=== PATIENT | female | born 1990 | race Caucasian/White ===

== ENCOUNTER → 2020-05-26 13:00 | Outpatient (CLI) | payer OTHER, SELFPAY ==
[2020-05-26 09:30] VITALS: BMI 18.8
[2020-05-26 13:53] LABS: Amphetamine Urine VISTA NEGATIVE (<1000 ng/mL); Barbiturate Urine VISTA NEGATIVE (< 200 ng/mL); Benzodiazepine Urine VISTA NEGATIVE (< 200 ng/mL); Cocaine Urine VISTA NEGATIVE (< 300 ng/mL); Ecstacy Urine VISTA NEGATIVE (< 500 ng/mL); Methadone Urine VISTA NEGATIVE (< 300 ng/mL); PCP Urine VISTA NEGATIVE (< 25 ng/mL); THC Urine VISTA NEGATIVE (< 50 ng/mL); Vista UDS pH Range 5
[2020-05-26 15:39] LABS: Chlamydia Trachomatis by PCR Negative (Negative); Neisserai gonorrhoeae by PCR Negative (Negative); Probe Check PASS; Sample Adequacy Control PASS; Specimen Processing Control PASS
[2020-06-02 04:18] LABS: HPV APTIMA, High Risk Negative (Negative)
== END ==
PROVIDERS: Referring Provider Obstetrics & Gynecology; Visit Provider Obstetrics & Gynecology
DX: Z34.90 Encounter for supervision of normal pregnancy, unspecified, unspecified trimester (principal)
CPT/HCPCS: 80307; 87086; 87491; 87591; 87624; 88175; G0145

== ENCOUNTER → 2020-06-01 11:02 | Outpatient (CLI) | payer OTHER, SELFPAY ==
[2020-05-26 09:30] VITALS: BMI 18.8
[2020-06-01 11:29] LABS: Absolute Lymphocyte Count 0.96 X10^3/uL (0.83-4.51); Absolute Neutrophil Count 6.1 X10^3/uL (2.0-7.7); Basophil# 0.04 X10^3/uL; Basophil% 0.5 % (0-1); Eosinophil# 0.05 X10^3/uL; Eosinophils% 0.7 % (0-5); Hematocrit 39.7 % (37-47); Hemoglobin 13.8 g/dL (12.0-15.0); Lymphocyte # 0.96 X10^3/ul (4.0); Lymphocyte % 12.6 % (19-41); Mean Corp Hgb Conc 34.8 g/dL (32-36); Mean Corpuscular Hgb 32.6 pg (27.0-32.0); Mean Corpuscular Volume 93.9 fL (81-99); Mean Platelet Vol. 11.1 fl (6.2-12.0); Monocyte# 0.47 X10^3/uL; Monocyte% 6.2 % (0-10); NRBC Flagged by Analyzer 0 % (0-5); Neutrophil % 79.9 % (47-70); Platelet Count 158 K/mm3 (150-450); RBC Distribution Width CV 11.9 % (11.6-14.6); RBC Distribution Width SD 40.2 fl (35.1-43.9); Red Blood Count 4.23 M/mm3 (4.2-5.4); White Blood Count 7.6 K/mm3 (4.4-11.0)
[2020-06-01 12:16] LABS: NATERA MAILED SPECIMEN
[2020-06-01 12:27] LABS: HIV - WCH Non-Reactive (Nonreactive); Hepatitis B Surface Antigen Non-Reactive (Nonreactive); Hepatitis C Antibody Non-Reactive (Nonreactive); Rubella IgG 7.6 IU/mL
[2020-06-02 03:25] LABS: Rapid Plasmin Reagin (RPR) NONREACTIVE (NONREACTIVE)
== END ==
PROVIDERS: Referring Provider Obstetrics & Gynecology; Visit Provider Obstetrics & Gynecology
DX: Z34.90 Encounter for supervision of normal pregnancy, unspecified, unspecified trimester (principal)
CPT/HCPCS: 36415; 85025; 86592; 86703; 86762; 86803; 86850; 86900; 86901; 87340

== ENCOUNTER → 2020-06-24 16:36 | Outpatient (CLI) | payer OTHER, SELFPAY ==
[2020-06-24 15:42] VITALS: BMI 18.8
== END ==
PROVIDERS: Referring Provider Obstetrics & Gynecology; Visit Provider Obstetrics & Gynecology
DX: Z34.90 Encounter for supervision of normal pregnancy, unspecified, unspecified trimester (principal)
CPT/HCPCS: 87086

== ENCOUNTER → 2020-07-22 16:12 | Outpatient (CLI) | payer OTHER, SELFPAY ==
[2020-07-18 16:05] VITALS: BMI 18.8
[2020-08-02 20:31] LABS: CF, Screen Comment: (.)
== END ==
PROVIDERS: Referring Provider Obstetrics & Gynecology; Visit Provider Obstetrics & Gynecology
DX: Z36.9 Encounter for antenatal screening, unspecified (principal); Z3A.00 Weeks of gestation of pregnancy not specified
CPT/HCPCS: 36415; 81220

== ENCOUNTER → 2020-10-04 15:34 | Outpatient (CLI) | payer OTHER, SELFPAY ==
[2020-09-15 16:04] VITALS: BMI 23.6
[2020-10-04 16:14] LABS: Absolute Lymphocyte Count 1.32 X10^3/uL (0.83-4.51); Absolute Neutrophil Count 7.4 X10^3/uL (2.0-7.7); Basophil# 0.03 X10^3/uL; Basophil% 0.3 % (0-1); Eosinophil# 0.08 X10^3/uL; Eosinophils% 0.8 % (0-5); Hematocrit 38.1 % (37-47); Hemoglobin 13.4 g/dL (12.0-15.0); Lymphocyte # 1.32 X10^3/ul (4.0); Lymphocyte % 13.9 % (19-41); Mean Corp Hgb Conc 35.2 g/dL (32-36); Mean Corpuscular Hgb 33.2 pg (27.0-32.0); Mean Corpuscular Volume 94.3 fL (81-99); Mean Platelet Vol. 10.7 fl (6.2-12.0); Monocyte# 0.59 X10^3/uL; Monocyte% 6.2 % (0-10); NRBC Flagged by Analyzer 0 % (0-5); Platelet Count 219 K/mm3 (150-450); RBC Distribution Width CV 12.7 % (11.6-14.6); RBC Distribution Width SD 43.6 fl (35.1-43.9); Red Blood Count 4.04 M/mm3 (4.2-5.4); White Blood Count 9.5 K/mm3 (4.4-11.0)
[2020-10-04 16:16] LABS: Glucose Challenge Gest 1H 50g 119 mg/dL (70-140)
== END ==
PROVIDERS: Referring Provider Obstetrics & Gynecology; Visit Provider Obstetrics & Gynecology
DX: Z34.90 Encounter for supervision of normal pregnancy, unspecified, unspecified trimester (principal)
CPT/HCPCS: 36415; 82950; 85025; 86850; 86900; 86901

== ENCOUNTER → 2020-11-17 12:14 | Outpatient (CLI) | payer OTHER, SELFPAY ==
[2020-07-18 16:05] VITALS: BMI 18.8
[2020-11-15 16:04] VITALS: BMI 24.7
--- NOTE | 2020-11-17 12:15 | US_ITS ---
STUDY: SECOND AND THIRD TRIMESTER OBSTETRICAL ULTRASOUND - LIMITED REASON FOR EXAM: Female, 30 years old GROWTH LMP: 03/22/2020 PRIOR ULTRASOUND: None. TECHNIQUE: Transabdominal TECHNICAL QUALITY: Adequate. FINDINGS: There is a single intrauterine fetus. The fetus is in a cephalic presentation. There is demonstrated cardiac activity with a heart rate of 137 bpm. There is a normal amniotic fluid volume. The largest amniotic fluid pocket measures 7.1 cm. The amniotic fluid index (DARIUS) is 18.1 cm. The placenta is anterior in location and is not low lying. There are Grade 1 placental changes. The cervix measures 4.4 cm cm in length. BIOMETRY: BPD: 8.6 cm: 34 weeks, 5 days HC: 32.2 cm: 36 weeks, 3 days AC: 31.0 cm: 34 weeks, 6 days FL: 6.5 cm: 33 weeks, 2 days Age by LMP: 34 weeks, 2 days. SIN by LMP: . age by current US: 35 weeks, 5 days. SIN by current US: 12/17/2020. Estimated weight: 2475 grams, +/- 366 grams, 50 percentile. Gender: US/OB Limited With Biometrics IMPRESSION: Living intrauterine of 35 weeks 5 days as described above. Electronically Signed: Michael Michel MD at 17:09 EST Tel , Service support ,
== END ==
PROVIDERS: Referring Provider Obstetrics & Gynecology; Visit Provider Obstetrics & Gynecology
DX: O44.42 Low lying placenta NOS or without hemorrhage, second trimester (principal); Z3A.00 Weeks of gestation of pregnancy not specified
CPT/HCPCS: 76816

== ENCOUNTER → 2020-12-01 16:48 | Outpatient (CLI) | payer OTHER, SELFPAY ==
[2020-12-01 16:11] VITALS: BMI 25.4
== END ==
PROVIDERS: Referring Provider Obstetrics & Gynecology; Visit Provider Obstetrics & Gynecology
DX: Z34.90 Encounter for supervision of normal pregnancy, unspecified, unspecified trimester (principal)
CPT/HCPCS: 87081

== ENCOUNTER 2020-12-29 16:40 | Outpatient (CLI) | payer OTHER, SELFPAY ==
[2020-12-29 16:22] VITALS: BMI 26.4
[2020-12-29 16:54] VITALS: BMI 24.8
[2020-12-29 17:09] VITALS: O2SAT 99
[2020-12-29 17:10] VITALS: BP 132/91; PULSE 75; O2SAT 99
[2020-12-29] MEDS: 0.9% Saline Lock 10 ML Syringe IV (17:30)
[2020-12-29 17:31] VITALS: BP 115/81; PULSE 77
[2020-12-29 17:41] VITALS: BP 126/94; PULSE 86
[2020-12-29 17:55] VITALS: BP 117/88; PULSE 76
[2020-12-29 17:57] LABS: Hematocrit 40.9 % (37-47); Hemoglobin 14.5 g/dL (12.0-15.0); Mean Corp Hgb Conc 35.5 g/dL (32-36); Mean Corpuscular Hgb 32.4 pg (27.0-32.0); Mean Corpuscular Volume 91.5 fL (81-99); Mean Platelet Vol. 11.9 fl (6.2-12.0); Platelet Count 177 K/mm3 (150-450); RBC Distribution Width CV 12.6 % (11.6-14.6); RBC Distribution Width SD 41.6 fl (35.1-43.9); Red Blood Count 4.47 M/mm3 (4.2-5.4); White Blood Count 8.8 K/mm3 (4.4-11.0)
[2020-12-29 18:06] LABS: Protein, Urine (Random) < 6.0 mg/dL (<11.9); Protein:Creat Ratio 207 mg/g CRE (0-200)
[2020-12-29 18:21] LABS: AST(SGOT) 30 U/L (15-37); Alanine Aminotransfer ALT/SGPT 40 U/L (13-56); Creatinine, Serum 0.73 mg/dL (0.55-1.02); EST Glomerular Filtration Rate 100 mL/min (>60); Est Glom Filt Rate - Afr Amer 120 mL/min (>60); Estimated Creatinine Clearance 105.49 ml/min; Uric Acid 5.3 mg/dL (2.6-6.0)
[2020-12-29 18:27] VITALS: BP 118/71; PULSE 74
[2020-12-29 18:39] LABS: ROM Internal Control Test YES-OK TO RESULT pt. (Internal QC); ROM Patient Test Negative (Negative)
--- NOTE | 2020-12-30 20:25 | OB.TRI.PN_ITS ---
Progress Notes Date of Service: 12/29/20 Progress Note: Patient presents for triage evaluation secondary to elevated BPs. 2 mild range pressures, but all other BPs normal. Labs normal aside from P:C of 207. Patient desires expectant management. FHT: Moderate variability reactive no decelerations category I tracing [place]: Irregular Contractions Assessment and plan: Reactive NST, reassuring maternal and status patient discharged to home to follow-up Saturday for IOL for late term. See problem list details for additional plan information. Laboratory Studies: Laboratory Tests 12/29/20 12/29/20 12/29/20 Range/Units 17:54 17:30 17:30 WBC (4.4-11.0) K/mm3 RBC (4.2-5.4) M/mm3 Hgb (12.0-15.0) g/dL Hct (37-47) % MCV (81-99) fL MCH (27.0-32.0) pg MCHC (32-36) g/dL RDW Std Deviation (35.1-43.9) fl RDW Coeff of Bruce (11.6-14.6) % Plt Count (150-450) K/mm3 MPV (6.2-12.0) fl Creatinine (0.55-1.02) mg/dL Estim Creat Clear Calc ml/min Est GFR (MDRD) Af Amer (>60) mL/min Est GFR (MDRD) Non-Af (>60) mL/min Uric Acid (2.6-6.0) mg/dL AST (15-37) U/L ALT (13-56) U/L U Random Total Protein (<11.9) mg/dL Urine Creatinine (NO RANGE EST.) mg/dL Protein/Creatinin Ratio (0-200) mg/g CRE Vag Amniotic Fld Detect Negative (Negative) Blood Type O NEGATIVE Antibody Screen NEGATIVE TNP 12/29/20 12/29/20 12/29/20 Range/Units 17:30 17:30 17:30 WBC 8.8 (4.4-11.0) K/mm3 RBC 4.47 (4.2-5.4) M/mm3 Hgb 14.5 (12.0-15.0) g/dL Hct 40.9 (37-47) % MCV 91.5 (81-99) fL MCH 32.4 H (27.0-32.0) pg MCHC 35.5 (32-36) g/dL RDW Std Deviation 41.6 (35.1-43.9) fl RDW Coeff of Bruce 12.6 (11.6-14.6) % Plt Count 177 (150-450) K/mm3 MPV 11.9 (6.2-12.0) fl Creatinine 0.73 (0.55-1.02) mg/dL Estim Creat Clear Calc 105.49 ml/min Est GFR (MDRD) Af Amer 120 (>60) mL/min Est GFR (MDRD) Non-Af 100 (>60) mL/min Uric Acid 5.3 (2.6-6.0) mg/dL AST 30 (15-37) U/L ALT 40 (13-56) U/L U Random Total Protein < 6.0 (<11.9) mg/dL Urine Creatinine 25.60 (NO RANGE EST.) mg/dL Protein/Creatinin Ratio 207 H (0-200) mg/g CRE Vag Amniotic Fld Detect (Negative) Blood Type Antibody Screen Multi Select Codes - Urinary/Genital Urinary/Genital CPT Codes: 40698-43 non-stress test Interp
== END 2020-12-29 19:05 | disposition home or self-care (01) ==
LOC: WPOUT 16:46 → WP 16:46
PROVIDERS: Referring Provider Obstetrics & Gynecology; Visit Provider Obstetrics & Gynecology
DX: O26.899 Other specified pregnancy related conditions, unspecified trimester (principal); R03.0 Elevated blood-pressure reading, without diagnosis of hypertension; Z3A.00 Weeks of gestation of pregnancy not specified
CPT/HCPCS: 36415; 59025; 59050; 82565; 82570; 84112; 84156; 84450; 84460; 84550; 85027; 86850; 86900; 86901; 99218; A4216; G0378

== ENCOUNTER 2021-01-03 08:30 | Inpatient (IN) | payer OTHER, SELFPAY ==
[2020-12-14 15:59] VITALS: BMI 25.6
--- NOTE | 2021-01-02 20:47 | PCM.HPOB.BLA ---
- Problem List (1) Lab test positive for detection of COVID-19 virus Status: Acute Comment: positive 09/16. 81 mg daily, growth us q 4 weeks. 10/06 US growth nl; NL 11/17 (2) Status: Acute Qualifiers: Comment: NIPT low risk. decline carrier. normal AFP. nl anatomy. (3) Rh negative status during Status: Acute Qualifiers: Comment: Rhogam at 28 weeks and prn (4) Rubella non-immune status, antepartum Status: Acute Comment: equiv. plan avoidance and MMR to be given PP (5) Supervision of normal Status: Acute Qualifiers: Comment: PRR SIN 12/27/20 Boy Dejan Guero (6) Mitral valve prolapse Status: Chronic History and Physical Date of Admission: 01/03/21 Intake Vital Signs 12/29/20 Height 5 ft 4 in 12/29/20 Weight: 154 lb 6 oz 12/29/20 BMI 26.4 12/29/20 BP 148/98 H Intake Visit Reasons: 40 WK OB Special Needs Bus Driver Required: No Is patient in pain?: No Allergies Sulfa (Sulfonamide Antibiotics) Allergy (Mild, Verified 12/29/20 16:22) blisters Medications Vits [Prenatabs FA] 1 tab PO DAILY 12/29/20 [History Confirmed 12/29/20] Last Menstral Period: 03/22/20 Zika: Zika virus screening: Negative : No PFSH PFSH Medical History Mitral valve prolapse (Chronic) Abnormal Pap smear of cervix (Acute) Surgical History History of hernia surgery (Acute) History of tonsillectomy (Acute) Status post colposcopy (Acute) Family History Grandfather Heart disease Grandmother Breast cancer Social History (Updated 12/30/20 @ 09:[address] Kailyn Correa MD) Smoking Status: Never smoker alcohol intake: current alcohol intake frequency: a few times a month details: prior to substance use type: does not use caffeine: Yes what type of physical activity do you participate in: walking, additional details: walks dog seatbelt use: always do you feel safe at home: Yes additional social history: - [facility] Patient works at [employer] Pregancy History 1 Elective abortions Hx Para Spontaneous abortions Hx # Term Pregnancies Ectopic pregnancies Hx # Pregnancies Multiple births # of living children HPI 40 WK OB: Details: EMMETT PÉREZ is a 30 year old @ 41 weeks presents for IOL sec postdates. OB Visit SIN Calculator Estimated Delivery Date Method Current WG Current Estimate 12/27/20 LMP (Certain) 40w 3d Expected Delivery Route/Plan Labor Preferences- planning childbirth classes first week in November labor support person: Mode pain management options preferred: [] cut cord/dad catch: [] : [] PP control planned: [] discussed possible routes of delivery and associated risks: [] special requests: [] Specific Issue/Plans flu vaccine: given tdap vaccine: given rhogam: given 28 weeks LARC form signed: declined movement and labor precautions reviewed. Problem list reviewed and updated with the most current plan of care details and appropriate orders placed. Relevant counseling for the gestational age provided. Continue routine care and follow up unless otherwise noted in visit notes/problem list details Initial Weight: 110 lb Date EGA Weight BP Urine Prot Glucose FHR FuHt Pres Dilation Effaced St Visit Note 05/26/20 9w 2d 175 SM- CRL 2.36cm cons with LMP 06/24/20 13w 3d 116 lb 8 oz (+6 lb 8 oz) 106/68 Negative Negative 145 SM- no vb cramping discussed nipt 07/18/20 16w 6d 120 lb (+10 lb) 104/80 150 Sm- no vb lof cramping, ordered phenergan for headaches 08/17/20 21w 1d 126 lb 8 oz (+16 lb 8 oz) 110/72 Negative Negative 145 GP - no cramping, LOF, VB, DFM. Repeat US scheduled for 28 weeks to eval low-lying placenta. 09/15/20 25w 2d 138 lb (+28 lb) 102/60 Negative Negative 140 SM- no vb lof good fm no regular ctx 10/04/20 28w 0d 137 lb (+27 lb) 100/60 140 28 SM- no vb lof good fm nor egular ctx. discussed follow up after covid 19 in , doing well. 12/01/20 30w 0d 140 lb (+30 lb) 108/74 140 30 SM- no vb lof good fm no regular ctx 11/03/20 32w 2d 112/78 Negative Negative 145 32 SM- no vb lof good fm nor egular ctx 11/15/20 34w 0d 144 lb (+34 lb) 110/88 Negative Negative 120 34 GP - no LOF, VB, DFM, regular ctx. Needs repeat growth d/t having COVID - ordered today. CB classes scheduled first week of November. GP - no LOF, VB, DFM, regular ctx. Needs repeat growth d/t having COVID - scheduled for 11/17. CB classes scheduled first week of November. 12/01/20 36w 2d 148 lb (+38 lb) 112/60 Negative Negative 149 36 Cephalic 1 40 -3 MH-No VB, LOF. No reg CTX. Good FM. GBS 12/08/20 37w 2d 149 lb (+39 lb) 120/76 Negative Negative 120 37 1 40 -3 Sm- no vb lof good fm n oregular ctx 12/14/20 38w 1d 149 lb 6 oz (+39 lb 6 oz) 132/84 Negative Negative 136 38 Cephalic 1 70 -2 MH-No reg CTX. Good Fm. No VB. LOF 12/23/20 39w 3d 152 lb (+42 lb) 120/72 Negative Negative 130 38 1 70 -2 SM- no vb lof good fm no regular ctx 12/29/20 40w 2d 154 lb 6 oz (+44 lb 6 oz) 148/98 Negative Negative SM- no vb lof good fm no regular ctx elevated bp to l and d for evaluation ACOG First Trimester First Trimester: Desire for , Alcohol, Tobacco Cessation, Illicit/Recreational Drug/Substance Use, Intimate Partner Violence, Barriers to care, Unstable Housing, Communication Barriers, Environmental/Work Hazards, Anticipated Course of Care, Toxoplasmosis Precations, Use of Any medications, Sexual activity, Exercise, Dental Care, Sauna/Hot tub use, Seat Belt use, Childbirth classes/Hospital facilities, , Travel, Indications for US and Screening for Aneuploidy Diagnostics Diagnostics Diagnostics Blood Type O NEGATIVE 12/29/20 Antibody Screen NEGATIVE 12/29/20 Glucose 1 Hr 50 gm 119 mg/dL (70-140) 10/04/20 Hgb 14.5 g/dL (12.0-15.0) 12/29/20 Hct 40.9 % (37-47) 12/29/20 Details: HIV: Urine Culture: Sequential Screen: NIPT Screen: ROS Const Reports system reviewed and no additional complaints, except as docu Card Reports system reviewed and no additional complaints, except as docu Resp Reports system reviewed and no additional complaints, except as docu GI Reports system reviewed and no additional complaints, except as docu, Reports nausea Reports system reviewed and no additional complaints, except as docu Musc Reports system reviewed and no additional complaints, except as docu Exam Const General: cooperative, healthy appearing, comfortable, anxious HENMT Head: normal to inspection Nose: external nose normal Face and sinus: normal facial exam Neck Neck: normal visual inspection, full ROM, no lymphadenopathy Thyroid: thyroid normal Chest Chest palpation & inspection: normal inspection of the chest Resp Effort & Inspection: normal respiratory effort GI Inspection: normal to inspection Palpation: soft, other (gravid uterus) Other: infant vertex and appropriate size for gestational age Other: Cervical Exam: Extrem General: pedal edema Results POC Urinalysis 2 Dip (Clinic) Office Urine Glucose Negative Last Edit by Kari Davis on 12/29/20 16:44 Office Urine Protein Negative Last Edit by Kari Davis on 12/29/20 16:44 Assessment & Plan Problems 1. Lab test positive for detection of COVID-19 virus U07.1 positive 09/16. 81 mg daily, growth us q 4 weeks. 10/06 US growth nl; NL 11/17 2. Rubella non-immune status, antepartum O99.89; Z28.3 equiv. plan avoidance and MMR to be given PP 3. Rh negative status during O26.899; Z67.91 Rhogam at 28 weeks and prn 4. 40 weeks gestation of Z3A.40 NIPT low risk. decline carrier. normal AFP. nl anatomy. 5. Supervision of normal Z34.90 PRR SIN 12/27/20 Boy Dejan Guero 6. Mitral valve prolapse I34.1 Patient presents IOL, plan management for with cytotec and pitocin Pain management: [plans epidural]. GBS [negative]. Management of any complications: [none] I have reviewed the PFSH and made any clinically relevant updates. Orders Orders: POC Urinalysis 2 Dip (Clinic) 12/29/20 Coding Level of Care Code OB Routine Diagnoses Lab test positive for detection of COVID-19 virus U07.1 Rubella non-immune status, antepartum O99.89; Z28.3 Rh negative status during O26.899; Z67.91 40 weeks gestation of Z3A.40 ??Weeks of gestation: 40 weeks Supervision of normal Z34.90 Mitral valve prolapse I34.1 UPDATE- I have seen the patient and performed any clinically relevant updates to the history and physical exam. Kailyn Correa MD
[2021-01-03] VITALS (47 sets, daily range): BP systolic 111–139; BP diastolic 67–94; PULSE 66–104; RESP 18; TEMP 36.5–36.8; O2SAT 94–100; BMI 25.2
[2021-01-03 09:18] LABS: Absolute Lymphocyte Count 1.12 X10^3/uL (0.83-4.51); Absolute Neutrophil Count 6.5 X10^3/uL (2.0-7.7); Basophil# 0.05 X10^3/uL; Basophil% 0.6 % (0-1); Eosinophil# 0.07 X10^3/uL; Eosinophils% 0.8 % (0-5); Hematocrit 40.8 % (37-47); Lymphocyte # 1.12 X10^3/ul (4.0); Lymphocyte % 13.4 % (19-41); Mean Corp Hgb Conc 34.3 g/dL (32-36); Mean Corpuscular Hgb 32.3 pg (27.0-32.0); Monocyte# 0.53 X10^3/uL; Monocyte% 6.4 % (0-10); NRBC Flagged by Analyzer 0 % (0-5); Neutrophil # 6.48 X10^3/uL (2.7-7.7); Neutrophil % 77.7 % (47-70); Platelet Count 159 K/mm3 (150-450); RBC Distribution Width CV 12.7 % (11.6-14.6); RBC Distribution Width SD 43.9 fl (35.1-43.9); Red Blood Count 4.34 M/mm3 (4.2-5.4); White Blood Count 8.3 K/mm3 (4.4-11.0)
[2021-01-03] MEDS: miSOPROStol 25 MCG TABLET VAGINAL (09:22)
[2021-01-03] MEDS: 0.9% Normal Saline Single 100 ML IV.SOLN. INTRA-UTER (10:38)
[2021-01-03] MEDS: Lactated Ringers 1,000 ML 200 ML IV (12:25)
[2021-01-03] MEDS: Oxytocin 30 units/NS 500 ml 30 UNITS/500 ML IV.SOLN IV (13:09)
[2021-01-03] MEDS: Lactated Ringers 500 ML 999 ML IV (13:51)
[2021-01-03] MEDS: fentaNYL-bupivacaine (epidural) 100 ML BAG EPIDURAL ×2 (14:33→16:50)
--- NOTE | 2021-01-03 16:54 | OP.PCM_ITS ---
Problem List (1) Lab test positive for detection of COVID-19 virus Status: Acute Comment: positive 09/16. 81 mg daily, growth us q 4 weeks. 10/06 US growth nl; NL 11/17 (2) Status: Acute Qualifiers: Comment: NIPT low risk. decline carrier. normal AFP. nl anatomy. (3) Rh negative status during Status: Acute Qualifiers: Comment: Rhogam at 28 weeks and prn (4) Rubella non-immune status, antepartum Status: Acute Comment: equiv. plan avoidance and MMR to be given PP (5) Supervision of normal Status: Acute Qualifiers: Comment: PRR SIN 12/27/20 Boy Dejan Guero (6) Mitral valve prolapse Status: Chronic Vaginal Delivery Maternal Presentation: Medically Indicated Induction iol 41 weeks Method of Induction: Pitocin, Cytotec Amniotic Membrane Rupture Type: Artificial Amniotic Fluid Description: Clear Final SIN: 12/27/20 Gestational age: 41 Weeks and 0 Days Date of Procedure: 01/03/21 Pre-Operative Diagnosis: iol postdates Surgery/ Procedure Performed: Spontaneous Vaginal Delivery Type of Anesthesia: Epidural Description of Procedure: Patient began pushing and delivered the head in the [SYMONE] presentation. The head was delivered atraumatically [and a loose nuchal cord ?1 was identified and easily reduced over the infant's head]. The anterior and posterior shoulders delivered without complication followed by the rest of the infant and the was placed on the maternal abdomen. Delayed cord clamping was employed for approximately 60 seconds. Cord was clamped and cut and gentle traction was applied to the cord and the placenta delivered spontaneously immediately following it was noted to be intact with three-vessel cord. The perineum and vagina were inspected and [noted to have no laceration]. EBL was [100 cc]. Patient and tolerated delivery well. Presentation: SYMONE Placental Delivery Description: Spontaneous Placenta Disposition: [facility] Cord Vessel Description: 3 Vessels Infant A gender: Female Multi Select Codes - Urinary/Genital Urinary/Genital CPT Codes: 25183 Vaginal Delivery [facility]
[2021-01-03] MEDS: Oxytocin 30 units/NS 500 ml 30 UNITS/500 ML IV.SOLN 334 UNITS IV (17:55)
[2021-01-03] MEDS: Naproxen 250 MG Tablet 500 MG PO (19:19)
[2021-01-04] VITALS (7 sets, daily range): BP systolic 112–136; BP diastolic 64–88; PULSE 78–98; RESP 15–18; TEMP 36.6–37.2
[2021-01-04] MEDS: Acetaminophen 500 MG Tablet 1000 MG PO ×3 (02:24→18:47)
[2021-01-04] MEDS: Naproxen 250 MG Tablet 500 MG PO ×3 (04:58→21:15)
--- NOTE | 2021-01-04 08:01 | PCM.PN.OB ---
Patient Problems: Active and Suspected Problems (Last Reviewed 12/29/20 @ 16:22 by Kari Davis) Lab test positive for detection of COVID-19 virus (Acute) positive 09/16. 81 mg daily, growth us q 4 weeks. 10/06 US growth nl; NL 11/17 Rubella non-immune status, antepartum (Acute) equiv. plan avoidance and MMR to be given PP Rh negative status during (Acute) Rhogam at 28 weeks and prn (Acute) NIPT low risk. decline carrier. normal AFP. nl anatomy. Supervision of normal (Acute) PRR SIN 12/27/20 Boy Dejan Guero Subjective: Patient doing well without complaints. Tolerating PO. Ambulating and voiding without difficulty. Breast feeding well. Denies chest pain, shortness of breath, calf pain/swelling, fevers, chills, lightheadedness. - Physical Exam Vitals/I&O's: Vital Signs Temp Pulse Resp BP Pulse Ox 98.1 F 78 18 112/68 100 01/04/21 07:54 01/04/21 07:54 01/04/21 04:44 01/04/21 07:54 01/03/21 17:17 Oxygen Delivery Method Room Air Weight: 156 lb 6 oz Body Mass Index (BMI) 25.2 Intake and Output for Last 24 Hours 01/02/21 01/03/21 01/04/21 23:59 23:59 23:59 Intake Total 1923.16 / 1923.16 Output Total 100 / 100 900 / 900 Balance 1823.16 / 1823.16 -900 / -900 General: Alert, Oriented x3, Cooperative Abdomen: Soft, Non Tender, Non-Distended, - - FF below U Microbiology Past 72 Hours 01/03/21 09:40 Mucosa - Nose SARS-CoV-2 Antigen (Rapid) - Final Laboratory Results 01/03/21 08:50: WBC 8.3, RBC 4.34, Hgb 14.0, Hct 40.8, MCV 94.0, MCH 32.3 H, MCHC 34.3, RDW Std Deviation 43.9, RDW Coeff of Bruce 12.7, Plt Count 159, MPV 12.0, Immature Gran % (Auto) 1.100 H, Neut % (Auto) 77.7 H, Lymph % (Auto) 13.4 L, Haakon % (Auto) 6.4, Eos % (Auto) 0.8, Baso % (Auto) 0.6, Absolute Neuts (auto) 6.5, Absolute Lymphs (auto) 1.12, Nucleated RBC % 0 01/03/21 08:50: Blood Type O NEGATIVE, Antibody Screen NEGATIVE Current Medications Acetaminophen (Acetaminophen 500 Mg Tablet) 1,000 mg PO Q8H PRN PRN PRN Reason: Pain Score 1-3 Last Admin: 01/04/21 02:24 Dose: 1,000 mg Documented by: Bisacodyl (Bisacodyl 10 Mg Suppository) 10 mg RC UD PRN PRN Reason: If no BM Dibucaine (Dibucaine 30 Gm Tube) 1 applic TOPICAL TID PRN PRN; Protocol PRN Reason: Discomfort Hydrocortisone (Hydrocortisone 2.5% Crm) 1 applic TOPICAL TID PRN PRN; Protocol PRN Reason: Discomfort Measles/Mumps/Rubella Vaccine Live (Measles,Mumps&Rubella Vaccine 0.5 Ml Vial) 0.5 ml SC .ONCE ONE Stop: 01/04/21 10:01 Methylergonovine Maleate (Methylergonovine 0.2 Mg/Ml Ampul) 0.2 mg IM X1 PRN PRN Reason: Excess bleeding/uterine atony Naproxen (Naproxen 250 Mg Tablet) 500 mg PO Q8H PRN PRN PRN Reason: Pain Score 1-3 Last Admin: 01/04/21 04:58 Dose: 500 mg Documented by: Ondansetron HCl (Ondansetron 4 Mg/2 Ml Vial) 4 mg IV Q4H PRN PRN PRN Reason: Nausea Oxycodone HCl (Oxycodone 5 Mg Tablet) 5 - 10 mg PO Q4H PRN PRN PRN Reason: Pain Score 4-10 Senna/Docusate Sodium (Senna/Docusate Sodium 1 Tablet) 1 - 2 tablet PO DAILY PRN PRN PRN Reason: Constipation Simethicone (Simethicone 80 Mg Tablet) 80 mg PO PCHS PRN PRN Reason: Indigestion/Stomach pain Sodium Chloride (0.9% Saline Lock 10 Ml Syringe) 5 - 15 ml IV UD PRN PRN Reason: SALINE FLUSH Medical Necessity - Tobacco Use Smoking Status: Never smoker Assessment/Plan All Active Problems (Last Reviewed 12/29/20 @ 16:22 by Kari Davis) Lab test positive for detection of COVID-19 virus (Acute) Rubella non-immune status, antepartum (Acute) Rh negative status during (Acute) (Acute) Supervision of normal (Acute) Low-lying placenta in second trimester (Resolved) Sinusitis (Resolved) s/p PPD # 1 1. routine post delivery care 2. breast feeding- support given 3. rh negative 4. rubella nonimmune
[2021-01-05 02:02] VITALS: BP 102/58; PULSE 77; RESP 16; TEMP 36.5
[2021-01-05] MEDS: Acetaminophen 500 MG Tablet 1000 MG PO (05:00)
--- NOTE | 2021-01-05 07:58 | PCM.PN.OB ---
Patient Problems: Active and Suspected Problems (Last Reviewed 12/29/20 @ 16:22 by Kari Davis) Rubella non-immune status, antepartum (Acute) equiv. plan avoidance and MMR to be given PP Rh negative status during (Acute) Rhogam at 28 weeks and prn Subjective: Patient doing well without complaints. Tolerating PO. Ambulating and voiding without difficulty. well. Denies chest pain, shortness of breath, calf pain/swelling, fevers, chills, lightheadedness. - Physical Exam Vitals/I&O's: Vital Signs Temp Pulse Resp BP Pulse Ox 97.7 F L 77 16 102/58 L 100 01/05/21 02:02 01/05/21 02:02 01/05/21 02:02 01/05/21 02:02 01/03/21 17:17 Oxygen Delivery Method Room Air Weight: 156 lb 6 oz Body Mass Index (BMI) 25.2 Intake and Output for Last 24 Hours 01/03/21 01/04/21 01/05/21 23:59 23:59 23:59 Intake Total 1923.16 / 1923.16 Output Total 100 / 100 900 / 900 Balance 1823.16 / 1823.16 -900 / -900 General: Alert, Oriented x3 Abdomen: Soft, Non Tender, - - FF below U Microbiology Past 72 Hours 01/03/21 09:40 Mucosa - Nose SARS-CoV-2 Antigen (Rapid) - Final Current Medications Acetaminophen (Acetaminophen 500 Mg Tablet) 1,000 mg PO Q8H PRN PRN PRN Reason: Pain Score 1-3 Last Admin: 01/05/21 05:00 Dose: 1,000 mg Documented by: Bisacodyl (Bisacodyl 10 Mg Suppository) 10 mg RC UD PRN PRN Reason: If no BM Dibucaine (Dibucaine 30 Gm Tube) 1 applic TOPICAL TID PRN PRN; Protocol PRN Reason: Discomfort Hydrocortisone (Hydrocortisone 2.5% Crm) 1 applic TOPICAL TID PRN PRN; Protocol PRN Reason: Discomfort Methylergonovine Maleate (Methylergonovine 0.2 Mg/Ml Ampul) 0.2 mg IM X1 PRN PRN Reason: Excess bleeding/uterine atony Naproxen (Naproxen 250 Mg Tablet) 500 mg PO Q8H PRN PRN PRN Reason: Pain Score 1-3 Last Admin: 01/04/21 21:15 Dose: 500 mg Documented by: Ondansetron HCl (Ondansetron 4 Mg/2 Ml Vial) 4 mg IV Q4H PRN PRN PRN Reason: Nausea Oxycodone HCl (Oxycodone 5 Mg Tablet) 5 - 10 mg PO Q4H PRN PRN PRN Reason: Pain Score 4-10 Senna/Docusate Sodium (Senna/Docusate Sodium 1 Tablet) 1 - 2 tablet PO DAILY PRN PRN PRN Reason: Constipation Simethicone (Simethicone 80 Mg Tablet) 80 mg PO PCHS PRN PRN Reason: Indigestion/Stomach pain Sodium Chloride (0.9% Saline Lock 10 Ml Syringe) 5 - 15 ml IV UD PRN PRN Reason: SALINE FLUSH Medical Necessity - Tobacco Use Smoking Status: Never smoker Assessment/Plan All Active Problems (Last Reviewed 12/29/20 @ 16:22 by Kari Davis) Rubella non-immune status, antepartum (Acute) Rh negative status during (Acute) Lab test positive for detection of COVID-19 virus (Resolved) (Resolved) Supervision of normal (Resolved) Low-lying placenta in second trimester (Resolved) Sinusitis (Resolved) s/p PPD # 2 1. routine post delivery care 2. breast feeding- support given 3. rh negative 4. rubella nonimmune 5. home today
--- NOTE | 2021-01-05 07:59 | DCINST_ITS ---
Additional Instructions: If you experience any of the following, contact your healthcare provider. * Bleeding that soaks a pad every hour for 2 hours * Fever 100.4 or higher * Unrelieved incision or abdominal pain * Swelling, redness, discharge or bleeding from your incision or episiotomy site * Your incision begins to separate * Problems urinating (including inability to urinate or burning while urinating). * Visual changes * Severe headache * Flu-like symptoms * Pain or redness in one of both of your breasts * Pain, warmth, tenderness or swelling in your legs, especially the calf area * Frequent nausea and vomiting * Symptoms of depression or anxiety If you experience any of the following, call 911 or go to the nearest Emergency Room. * Chest pain * Problems breathing * Seizure activity * Partial or complete paralysis of a body part, slurred speech, weakness or drooping of the face, or a sudden inability to walk or hold your balance Allergies/Adverse Reactions: Allergies Sulfa (Sulfonamide Antibiotics) Allergy (Mild, Verified 01/03/21 10:22) blisters Medications to take at Discharge Vits [Prenatabs FA] 1 tab PO DAILY 12/29/20 Primary Care Physician: Care Physician,No Primary [Primary Care Provider] - Test Results: Test results from this visit will be discussed in further detail at your follow- up appointment, if applicable.
--- NOTE | 2021-01-05 07:59 | PCM.DCVAG ---
Additional Instructions: If you experience any of the following, contact your healthcare provider. Bleeding that soaks a pad every hour for 2 hours Fever 100.4 or higher Unrelieved incision or abdominal pain Swelling, redness, discharge or bleeding from your incision or episiotomy site Your incision begins to separate Problems urinating (including inability to urinate or burning while urinating). Visual changes Severe headache Flu-like symptoms Pain or redness in one of both of your breasts Pain, warmth, tenderness or swelling in your legs, especially the calf area Frequent nausea and vomiting Symptoms of depression or anxiety If you experience any of the following, call 911 or go to the nearest Emergency Room. Chest pain Problems breathing Seizure activity Partial or complete paralysis of a body part, slurred speech, weakness or drooping of the face, or a sudden inability to walk or hold your balance Allergies/Adverse Reactions: Allergies Sulfa (Sulfonamide Antibiotics) Allergy (Mild, Verified 01/03/21 10:22) blisters Medications to take at Discharge Vits [Prenatabs FA] 1 tab PO DAILY 12/29/20 Primary Care Physician: Care Physician,No Primary [Primary Care Provider] - Test Results: Test results from this visit will be discussed in further detail at your follow-up appointment, if applicable.
[2021-01-05 08:09] VITALS: BP 121/70; PULSE 80; TEMP 36.9
[2021-01-05] MEDS: Naproxen 250 MG Tablet 500 MG PO (08:30)
[2021-01-05 08:51] VITALS: BP 121/70; PULSE 80; RESP 15; TEMP 36.9
== END 2021-01-05 12:15 | disposition home or self-care (01) | DRG 807 ==
PROVIDERS: Admitting Provider Obstetrics & Gynecology; Visit Provider Obstetrics & Gynecology
DX: O48.0 Post-term pregnancy (principal); Z37.0 Single live birth; Z3A.41 41 weeks gestation of pregnancy; O69.81X0 Labor and delivery complicated by cord around neck, without compression, not applicable or unspecified
CPT/HCPCS: 59025; 59050; 85025; 86850; 86900; 86901; 87426; 99218; J7120; G0378

== ENCOUNTER → 2021-01-07 06:55 | Outpatient (CLI) | payer OTHER, SELFPAY ==
[2021-01-03 09:45] VITALS: BMI 25.2
== END ==
PROVIDERS: Referring Provider Obstetrics & Gynecology; Visit Provider Obstetrics & Gynecology
DX: O92.79 Other disorders of lactation (principal)
CPT/HCPCS: 96158

== ENCOUNTER → 2022-09-17 | Outpatient (CLI) | payer OTHER, SELFPAY ==
[2022-09-17 13:41] LABS: hCG Titer Quant., Serum 4638 mIU/mL (1-3)
== END | disposition home or self-care (01) ==
LOC: PAVLAB 12:26
PROVIDERS: Referring Provider Obstetrics & Gynecology; Visit Provider Obstetrics & Gynecology
DX: N91.2 Amenorrhea, unspecified (principal)
CPT/HCPCS: 36415; 84702; 86850; 86900; 86901

== ENCOUNTER → 2022-09-19 | Outpatient (CLI) | payer OTHER, SELFPAY ==
[2022-09-19 16:58] LABS: hCG Titer Quant., Serum 8325 mIU/mL (1-3)
== END | disposition home or self-care (01) ==
LOC: PAVLAB 15:48
PROVIDERS: Referring Provider Obstetrics & Gynecology; Visit Provider Obstetrics & Gynecology
DX: N91.2 Amenorrhea, unspecified (principal)
CPT/HCPCS: 36415; 84702

== ENCOUNTER → 2022-10-03 | Outpatient (CLI) | payer OTHER, SELFPAY ==
[2022-10-03 11:25] LABS: Amphetamine Urine VISTA NEGATIVE (<1000 ng/mL); Barbiturate Urine VISTA NEGATIVE (< 200 ng/mL); Benzodiazepine Urine VISTA NEGATIVE (< 200 ng/mL); Cocaine Urine VISTA NEGATIVE (< 300 ng/mL); Ecstacy Urine VISTA NEGATIVE (< 500 ng/mL); Methadone Urine VISTA NEGATIVE (< 300 ng/mL); PCP Urine VISTA NEGATIVE (< 25 ng/mL); THC Urine VISTA NEGATIVE (< 50 ng/mL); Vista UDS pH Range 6
[2022-10-07 11:07] LABS: Chlamydia By Nucleic Acid AMP Negative (Negative)
[2022-10-07 13:19] LABS: Gonococcus By Nucleic Acid AMP Negative (Negative)
== END | disposition home or self-care (01) ==
PROVIDERS: Visit Provider Obstetrics & Gynecology
DX: O09.90 Supervision of high risk pregnancy, unspecified, unspecified trimester (principal)
CPT/HCPCS: 80307; 87086; 87088; 87491; 87591

== ENCOUNTER → 2022-10-16 | Outpatient (CLI) | payer OTHER, SELFPAY ==
[2022-10-16 16:23] LABS: Absolute Lymphocyte Count 1.31 X10^3/uL (0.83-4.51); Absolute Neutrophil Count 5.3 X10^3/uL (2.0-7.7); Basophil# 0.04 X10^3/uL; Basophil% 0.6 % (0-1); Eosinophil# 0.09 X10^3/uL; Eosinophils% 1.3 % (0-5); Hematocrit 41.8 % (37-47); Hemoglobin 14.2 g/dL (12.0-15.0); Lymphocyte # 1.31 X10^3/ul (0.83-4.51); Lymphocyte % 18.3 % (19-41); Mean Corpuscular Volume 91.3 fL (81-99); Mean Platelet Vol. 11.6 fl (6.2-12.0); Monocyte% 5.6 % (0-10); NRBC Flagged by Analyzer 0 % (0-5); Neutrophil # 5.28 X10^3/uL (2.7-7.7); Neutrophil % 73.8 % (47-70); Platelet Count 181 K/mm3 (150-450); RBC Distribution Width CV 12.4 % (11.6-14.6); RBC Distribution Width SD 41.3 fl (35.1-43.9); Red Blood Count 4.58 M/mm3 (4.2-5.4); White Blood Count 7.2 K/mm3 (4.4-11.0)
[2022-10-16 17:00] LABS: NATERA MAILED SPECIMEN
[2022-10-16 17:27] LABS: HIV - WCH Non-Reactive (Nonreactive); Hepatitis B Surface Antigen Non-Reactive (Nonreactive); Hepatitis C Antibody Non-Reactive (Nonreactive); Rubella IgG Reactive (Nonreactive); Syphilis Antibodies Non-reactive
== END | disposition home or self-care (01) ==
LOC: PAVLAB 15:52
PROVIDERS: Referring Provider Obstetrics & Gynecology; Visit Provider Obstetrics & Gynecology
DX: O09.90 Supervision of high risk pregnancy, unspecified, unspecified trimester (principal)
CPT/HCPCS: 36415; 85025; 86703; 86762; 86780; 86803; 86850; 86900; 86901; 87340

== ENCOUNTER → 2023-02-27 | Outpatient (CLI) | payer OTHER, SELFPAY ==
[2023-02-27 09:55] LABS: Absolute Lymphocyte Count 1.19 X10^3/uL (0.83-4.51); Absolute Neutrophil Count 7.3 X10^3/uL (2.0-7.7); Basophil# 0.06 X10^3/uL; Basophil% 0.6 % (0-1); Eosinophil# 0.07 X10^3/uL; Eosinophils% 0.8 % (0-5); Hematocrit 39.1 % (37-47); Hemoglobin 13.5 g/dL (12.0-15.0); Lymphocyte # 1.19 X10^3/ul (0.83-4.51); Lymphocyte % 12.9 % (19-41); Mean Corp Hgb Conc 34.5 g/dL (32-36); Mean Corpuscular Volume 95.6 fL (81-99); Mean Platelet Vol. 10.7 fl (6.2-12.0); Monocyte# 0.53 X10^3/uL; Monocyte% 5.7 % (0-10); NRBC Flagged by Analyzer 0 % (0-5); Neutrophil # 7.28 X10^3/uL (2.7-7.7); Neutrophil % 78.8 % (47-70); Platelet Count 177 K/mm3 (150-450); RBC Distribution Width CV 12.7 % (11.6-14.6); RBC Distribution Width SD 44.5 fl (35.1-43.9); Red Blood Count 4.09 M/mm3 (4.2-5.4); White Blood Count 9.2 K/mm3 (4.4-11.0)
[2023-02-27 10:43] LABS: Glucose Challenge Gest 1H 50g 114 mg/dL (70-140)
[2023-02-27 11:13] LABS: HIV - WCH Non-Reactive (Nonreactive); Syphilis Antibodies Non-reactive
== END | disposition home or self-care (01) ==
LOC: PAVLAB 09:33
PROVIDERS: Referring Provider Nurse Practitioner Women's Health; Visit Provider Nurse Practitioner Women's Health
DX: O26.899 Other specified pregnancy related conditions, unspecified trimester (principal); Z67.91 Unspecified blood type, Rh negative
CPT/HCPCS: 36415; 82950; 85025; 86703; 86780; 86900; 86901

== ENCOUNTER 2023-04-16 16:50 | Outpatient (CLI) | payer OTHER, SELFPAY ==
[2023-04-16 17:08] VITALS: BP 132/80
[2023-04-16 17:09] VITALS: PULSE 86; O2SAT 97
--- NOTE | 2023-04-16 17:23 | OB.TRI.PN_ITS ---
Progress Notes Date of Service: 04/16/23 Progress Note: Patient presents for triage evaluation secondary to low baseline in office FHT: 125 Moderate variability reactive no decelerations category I tracing [place]: no Contractions Assessment and plan: Reactive NST, reassuring maternal and status patient discharged to home to follow-up in office at next appointment. See problem list details for additional plan information. Charges/Coding Procedures Urinary/Genital 52xxx-[id number]: 38345-33 non-stress test Interp Assessment & Plan (1) Supervision of high risk , antepartum: COMMENT: PRR , SIN , PC Dejan Guero normal female panorama report (2) : QUALIFIERS: Weeks of gestation: 34 weeks Qualified Code(s): Z3A.34 - 34 weeks gestation of COMMENT: anatomy nl, NIPT low risk, discussed carrier testing (3) Baseline heart rate range 100 to 120 beats per minute: COMMENT: significant change from previous baseline. to WP for evaluation.
[2023-04-16 17:37] VITALS: BMI 24.3
[2023-04-16 17:43] VITALS: PULSE 75; O2SAT 99
== END 2023-04-16 18:10 | disposition home or self-care (01) ==
LOC: WPOUT 16:58 → WP 16:59
PROVIDERS: Referring Provider Advanced Practice Midwife; Visit Provider Advanced Practice Midwife
DX: O36.8390 Maternal care for abnormalities of the fetal heart rate or rhythm, unspecified trimester, not applicable or unspecified (principal)
CPT/HCPCS: 59025; 59050; 99221; G0378

== ENCOUNTER → 2023-04-24 | Outpatient (CLI) | payer OTHER, SELFPAY | END | disposition home or self-care (01) | LOC: LABSPEC 13:31 | PROVIDERS: Referring Provider Obstetrics & Gynecology; Visit Provider Obstetrics & Gynecology | DX: O09.90 Supervision of high risk pregnancy, unspecified, unspecified trimester (principal); Z3A.00 Weeks of gestation of pregnancy not specified | CPT/HCPCS: 87081 ==

== ENCOUNTER 2023-05-15 10:55 | Inpatient (IN) | payer OTHER, SELFPAY ==
[2023-05-15] VITALS (82 sets, daily range): BP systolic 59–151; BP diastolic 27–89; PULSE 55–102; RESP 16; TEMP 36.6–37.2; O2SAT 81–100; BMI 24.6
[2023-05-15] MEDS: Lactated Ringers 1,000 ML 50 ML IV (12:25)
[2023-05-15 12:41] LABS: Absolute Lymphocyte Count 0.99 X10^3/uL (0.83-4.51); Absolute Neutrophil Count 7.4 X10^3/uL (2.0-7.7); Basophil# 0.04 X10^3/uL; Basophil% 0.4 % (0-1); Eosinophil# 0.03 X10^3/uL; Eosinophils% 0.3 % (0-5); Hematocrit 38.9 % (37-47); Lymphocyte # 0.99 X10^3/ul (0.83-4.51); Lymphocyte % 10.7 % (19-41); Mean Corpuscular Hgb 33.5 pg (27.0-32.0); Mean Corpuscular Volume 93.1 fL (81-99); Mean Platelet Vol. 10.7 fl (6.2-12.0); Monocyte# 0.71 X10^3/uL; Monocyte% 7.7 % (0-10); NRBC Flagged by Analyzer 0 % (0-5); Neutrophil # 7.43 X10^3/uL (2.7-7.7); Platelet Count 162 K/mm3 (150-450); RBC Distribution Width CV 12.9 % (11.6-14.6); RBC Distribution Width SD 43.8 fl (35.1-43.9); Red Blood Count 4.18 M/mm3 (4.2-5.4); White Blood Count 9.3 K/mm3 (4.4-11.0)
[2023-05-15 13:27] LABS: Syphilis Antibodies Non-reactive
[2023-05-15] MEDS: LACTATED RINGERS 500 ML 999 ML IV ×3 (14:05→17:55)
[2023-05-15] MEDS: fentaNYL-bupivacaine (epidural) 100 ML BAG EPIDURAL (15:30)
[2023-05-15] MEDS: Oxytocin 15 Units/NS 250ml 15 UNITS/250 ML IV.SOLN 2 UNITS IV (16:48)
[2023-05-15] MEDS: LACTATED RINGERS 1,000 ML 999 ML IV (17:05)
--- NOTE | 2023-05-15 17:40 | HP.PCM.OB_ITS ---
HPI - General General Date of Admission: 05/15/23 HPI Narrative EMMETT PÉREZ, is a 33 y/o @ 40 weeks who presents to L&D for IOL due to decelerations in the office today. The NST was performed initially for an audible decel. on the monitor she had 2 late decels. Maternal Data Information SIN Calculator Estimated Delivery Date Method Current WG Current Estimate 05/15/23 LMP (Certain) 40w 0d Other Estimates 05/11/23 Ultrasound #1 40w 4d PFSH PFSH Medical History (Updated 05/15/23 @ 09:48 by Kari Davis) Abnormal Pap smear of cervix Hx of recurrent urinary tract infection Mitral valve prolapse Home Medications vit,calcium no.40-iron fum 27 mg iron-folate no.1 1 mg tablet (PNV- Select) 1 tab PO DAILY 09/21/22 [History Last Taken 05/14/23 11:14] fluticasone propionate 50 mcg/actuation nasal spray,suspension 1 spray intranasal DAILY PRN allergy symptoms 04/16/23 [History Last Taken Unknown] Allergy/AdvReac Type Severity Reaction Status Date / Time Sulfa (Sulfonamide Allergy Mild blisters Verified 05/15/23 09:47 Antibiotics) Family History Grandfather Heart disease Grandmother Breast cancer Surgical History (Updated 05/15/23 @ 13:19 by Elvira Edwards) History of hernia surgery History of tonsillectomy Status post colposcopy [place] teeth removed Social History adopted: No household members: spouse and children housing: house number of children: 1 current occupational status: employed 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 current occupational exposures/hazards: No pets and animals: Yes (not managing litterbox) pets and animals: cat(s) and dog(s) history of recent travel: No sexually active: Yes Smoking Status: Never smoker alcohol intake: former details: prior to substance use type: does not use well-balanced diet: daily or most days caffeine: Yes Type: coffee Number of servings: 1 during the past year weight has: remained stable what type of physical activity do you participate in: none alayna/hoahaoism: None seatbelt use: always do you feel safe at home: Yes additional social history: - [employer] Patient works at [employer] History 2 Elective abortions Hx Para 1 Spontaneous abortions Hx # Term Pregnancies 1 Ectopic pregnancies Hx # Pregnancies Multiple births # of living children 1 Past Pregnancies Del. Date Name GA/Weeks Outcome Route Bth Weight Infant Gen Labor Lgth Anesthesia Del Locatn Provider FOB 01/03/21 Dejan 41 live - full term Female [facility] Madeline Delivery Date: 01/03/21 Last Updated by: Adelaida Herr IOL postdates 41 wks Visit Details Expected Delivery Route/Plan Labor Preferences- CB/BF classes: no labor support person: Guero labor intervention preferences: pain management options preferred: epidural cut cord/dad catch: yes : yes PP control planned: discussed discussed possible routes of delivery and associated risks: [] special requests: [] Plans Covid status: Flu vaccine: declined Tdap vaccine: given Rhogam: given 02/27/23 LARC form signed: yes Problem list reviewed and updated with the most current plan of care details and appropriate orders placed. Relevant counseling for the gestational age provided. Continue routine care and follow up unless otherwise noted in visit notes/problem list details OB Flowsheet Initial Weight: Not Recorded Date -?-?-?-?-?-?-?-?-?-?-?-?- EGA Weight BP Urine Prot -?-?-?-?-?-?-?-?-?-?-?-?- Glucose FHR FuHt Pres Dilation -?-?-?-?-?-?-?-?-?-?-?-?- Effaced St Visit Note 10/03/22 -?-?-?-?-?-?-?-?-?-?-?-?- 8w 0d 114 lb 119/75 -?-?-?-?-?-?-?-?-?-?-?-?- 175 -?-?-?-?-?-?-?-?-?-?-?-?- JV- single live IUP measuring 8w4d consistent with lmp. SIN 05/15/22 11/01/22 -?-?-?-?-?-?-?-?-?-?-?-?- 12w 1d 118 lb 4 oz 108/66 Nega tive -?-?-?-?-?-?-?-?-?-?-?-?- Negative 152 -?-?-?-?-?-?-?-?-?-?-?-?- JV- no lof, vagi nal bleeding, or cramping. normal NIPT today and it's a girl! 11/30/22 -?-?-?-?-?-?-?-?-?-?-?-?- 16w 2d 124 lb 6 oz 121/69 Nega tive -?-?-?--?-?-?-?-?-?-?-?-?- Negative 150 -?-?-?-?-?-?-?-?-?-?-?-?- SM- no vb lof go od 12/27/22 -?-?-?-?-?-?-?-?-?-?-?-?- 20w 1d 126 lb 8 oz 118/72 Nega tive -?-?-?-?-?-?-?-?-?-?-?-?- Negative 137 -?-?-?-?-?-?-?-?-?-?-?-?- JV- no lof, vagi nal bleeding, or cramping. has anatomy scan scheduled for 01/0802/06/23 -?-?-?-?-?-?-?-?-?-?-?-?- 26w 0d 136 lb 6 oz 112/72 Nega tive -?-?-?-?-?-?-?-?-?-?-?-?- Negative 141 26 -?-?-?-?-?-?-?-?-?-?-?-?- MH-No VB, LOF. G ood FM. [facility] 02/27/23 -?-?-?-?-?-?-?-?-?-?-?-?- 29w 0d 141 lb 4 oz 112/64 Nega tive -?-?-?-?-?-?-?-?-?-?-?-?- Negative 136 28 -?-?-?-?-?-?-?-?-?-?-?-?- MH-No Vb, LOF. G ood Fm. 28wk labs, fannie raiap. 03/20/23 -?-?-?-?-?-?-?-?-?-?-?-?- 32w 0d 144 lb 8 oz 104/70 Nega tive -?-?-?-?-?-?-?-?-?-?-?-?- Negative 130 32 -?-?-?-?-?-?-?-?-?-?-?-?- KW- +FM. No lof/ vb/ctx. glucose reviewed. having low back pain~support belt recommended. 04/03/23 -?-?-?-?-?-?-?-?-?-?-?-?- 34w 0d 146 lb 8 oz 130/76 Nega tive -?-?-?-?-?-?-?-?-?-?-?-?- Negative 150 34 -?-?-?-?--?-?-?-?-?-?-?-?- LC- no lof/vb/ct x. good fm. no concerns today. 04/16/23 -?-?-?-?-?-?-?-?-?-?-?-?- 35w 6d 151 lb 6 oz 112/68 -?-?-?-?-?-?-?-?-?-?-?-?- 115 36 -?-?-?-?-?-?-?-?-?-?-?-?- KW-+fm, no lof/v b/ctx. lower baseline. to for evaluation 04/24/23 -?-?-?-?-?-?-?-?-?-?-?-?- 37w 0d 152 lb 2 oz 115/74 Nega tive -?-?-?-?-?-?-?-?-?-?-?-?- Negative 122 36 Cephalic 0 .5 -?-?-?-?-?-?-?-?-?-?-?-?- 50 -3 JV- vtx on ultrasound today. (bedside)gbs collected. 05/01/23 -?-?-?-?-?-?-?-?-?-?-?-?- 38w 0d 150 lb 4 oz 114/74 Nega tive -?-?-?-?-?-?-?-?-?-?-?-?- Negative 143 38 Cephalic 0 .5 -?-?-?-?-?-?-?-?-?-?-?-?- 50 -3 LC- no con cerns. no lof/vb/ctx. good fm. 05/08/23 -?-?-?-?-?-?-?-?-?-?-?-?- 39w 0d 151 lb 6 oz 125/66 Nega tive -?-?-?-?-?-?-?-?-?-?-?-?- Negative 127 38 Cephalic 2 -?-?-?-?-?-?-?-?-?-?-?-?- 60 -2 JV- no lof , vaginal bleeding, or dec fm. asynclitic head position more to the maternal left. encourage birthing ball. pt not in a hale for IOL. wants to wait to discuss next appt. 05/15/23 -?-?-?-?-?-?-?-?-?-?-?-?- 40w 0d 153 lb 6 oz 125/85 Nega tive -?-?-?-?-?-?-?-?-?-?-?-?- Negative 135 Cephalic 4 -?-?-?-?-?-?-?-?-?-?-?-?- 60 -2 JV- audibl e decel on doppler but baby was active and could have been mom. NST ordered. JV- audible decel on doppler but baby was active and could have been mom. NST ordered. 2 late decels seen minimal variability. sending for IOL. ROS Constitutional Constitutional: Denies change in weight, fatigue, fever(s), headache(s), poor appetite or weakness Eyes Eyes: Denies blurry vision, change in vision, seeing flashes or spots in vision ENT HEENT: Denies dizziness, headache(s), loss taste/smell or sore throat Cardiovascular Cardiovascular: Denies chest pain, dizziness, dyspnea, irregular heart rhythm, leg edema, palpitations, rapid heart rate or vomiting Respiratory/Chest Respiratory/Chest: Denies chest tightness, cough, dyspnea or breast pain Gastrointestinal Gastrointestinal: Denies abdominal pain, anorexia, constipation, cramping, diarrhea, hemorrhoids, vomiting or weight changes Genitourinary Genitourinary: Denies dysuria, flank pain, genital lesions, genital pain, urinary frequency or urinary urgency Musculoskeletal Musculoskeletal: Denies back pain, difficulty walking, joint pain, limited range of motion, muscle cramps or numbness Integumentary Integumentary: Denies lesions or unusual bruising Neurologic Neurologic: Denies abnormal movements, abnormal speech, dizziness, numbness, seizure-like activity or syncope Psychiatric Psychiatric: Denies anxiety, behavioral changes, change in appetite, change in libido, cognitive impairment, confusion, depression, difficulty concentrating, hallucinations or suicidal thoughts Endocrine Endocrinology: Denies excessive sweating, polydipsia or polyuria Hematologic/Lymphatic Hematologic/Lymphatic: Denies easy bleeding, easy bruising or lymphadenopathy Allergic/Immunologic Allergic/Immunologic: Denies itchy eyes, lip swelling, seasonal rhinorrhea, rhinitis, throat swelling, tongue swelling, eczemia, wheezing or asthma Vital Signs Vital Signs Vital Signs: 05/15/23 11:21 05/15/23 11:21 05/15/23 11:22 Temperature Temperature Source Temporal Pulse Rate 83 Blood Pressure 128/79 H BP Systolic 128 BP Diastolic 79 Pulse Ox 05/15/23 11:22 05/15/23 11:53 05/15/23 11:53 Temperature 98.1 F Temperature Source Pulse Rate 84 Blood Pressure BP Systolic BP Diastolic Pulse Ox 96 05/15/23 11:58 05/15/23 11:58 05/15/23 12:03 Temperature Temperature Source Pulse Rate 83 85 Blood Pressure BP Systolic BP Diastolic Pulse Ox 97 05/15/23 12:03 05/15/23 12:08 05/15/23 12:08 Temperature Temperature Source Pulse Rate 74 Blood Pressure BP Systolic BP Diastolic Pulse Ox 96 97 05/15/23 13:22 05/15/23 13:22 05/15/23 13:22 Temperature Temperature Source Temporal Pulse Rate 84 Blood Pressure 120/74 BP Systolic 120 BP Diastolic 74 Pulse Ox 05/15/23 13:22 05/15/23 13:22 05/15/23 13:23 Temperature 97.9 F Temperature Source Pulse Rate Blood Pressure BP Systolic BP Diastolic Pulse Ox 97 81 05/15/23 14:51 05/15/23 14:51 05/15/23 14:51 Temperature Temperature Source Pulse Rate 79 Blood Pressure 119/73 BP Systolic 119 BP Diastolic 73 Pulse Ox 97 05/15/23 14:51 05/15/23 14:51 05/15/23 15:05 Temperature 98.3 F Temperature Source Temporal Pulse Rate 80 Blood Pressure BP Systolic BP Diastolic Pulse Ox 05/15/23 15:05 05/15/23 15:10 05/15/23 15:10 Temperature Temperature Source Pulse Rate 82 Blood Pressure BP Systolic BP Diastolic Pulse Ox 98 99 05/15/23 15:11 05/15/23 15:11 05/15/23 15:15 Temperature Temperature Source Pulse Rate 82 Blood Pressure 151/76 H 122/84 H BP Systolic 151 122 BP Diastolic 76 84 Pulse Ox 05/15/23 15:15 05/15/23 15:15 05/15/23 15:20 Temperature Temperature Source Pulse Rate 80 Blood Pressure 113/62 BP Systolic 113 BP Diastolic 62 Pulse Ox 97 05/15/23 15:20 05/15/23 15:20 05/15/23 15:20 Temperature Temperature Source Pulse Rate 86 83 Blood Pressure BP Systolic BP Diastolic Pulse Ox 96 05/15/23 15:21 05/15/23 15:21 05/15/23 15:25 Temperature Temperature Source Pulse Rate 75 84 Blood Pressure BP Systolic BP Diastolic Pulse Ox 89 05/15/23 15:25 05/15/23 15:26 05/15/23 15:26 Temperature Temperature Source Pulse Rate 83 Blood Pressure 106/55 L BP Systolic 106 BP Diastolic 55 Pulse Ox 96 05/15/23 15:30 05/15/23 15:30 05/15/23 15:30 Temperature Temperature Source Pulse Rate 84 Blood Pressure 108/60 BP Systolic 108 BP Diastolic 60 Pulse Ox 98 05/15/23 15:35 05/15/23 15:35 05/15/23 15:35 Temperature Temperature Source Pulse Rate 82 Blood Pressure 101/58 L BP Systolic 101 BP Diastolic 58 Pulse Ox 97 05/15/23 15:40 05/15/23 15:40 05/15/23 15:40 Temperature Temperature Source Pulse Rate 76 73 Blood Pressure 100/55 L BP Systolic 100 BP Diastolic 55 Pulse Ox 05/15/23 15:40 05/15/23 15:45 05/15/23 15:45 Temperature Temperature Source Pulse Rate 72 Blood Pressure 98/55 L BP Systolic 98 BP Diastolic 55 Pulse Ox 97 05/15/23 15:45 05/15/23 15:45 05/15/23 15:45 Temperature Temperature Source Temporal Pulse Rate 74 Blood Pressure BP Systolic BP Diastolic Pulse Ox 98 05/15/23 15:45 05/15/23 15:50 05/15/23 15:50 Temperature 97.8 F Temperature Source Pulse Rate 71 Blood Pressure 99/56 L BP Systolic 99 BP Diastolic 56 Pulse Ox 05/15/23 15:56 05/15/23 15:56 05/15/23 16:00 Temperature Temperature Source Pulse Rate 73 Blood Pressure 99/58 L 100/56 L BP Systolic 99 100 BP Diastolic 58 56 Pulse Ox 05/15/23 16:00 05/15/23 16:05 05/15/23 16:05 Temperature Temperature Source Pulse Rate 73 67 Blood Pressure 96/51 L BP Systolic 96 BP Diastolic 51 Pulse Ox 05/15/23 16:11 05/15/23 16:11 05/15/23 16:16 Temperature Temperature Source Pulse Rate 74 Blood Pressure 102/57 L 85/49 L BP Systolic 102 85 BP Diastolic 57 49 Pulse Ox 05/15/23 16:16 05/15/23 16:17 05/15/23 16:17 Temperature Temperature Source Pulse Rate 82 71 Blood Pressure 68/32 L BP Systolic 68 BP Diastolic 32 Pulse Ox 05/15/23 16:19 05/15/23 16:19 05/15/23 16:21 Temperature Temperature Source Pulse Rate 55 L Blood Pressure 59/27 L 99/55 L BP Systolic 59 99 BP Diastolic 27 55 Pulse Ox 05/15/23 16:21 05/15/23 16:21 05/15/23 16:25 Temperature Temperature Source Pulse Rate 59 L Blood Pressure 104/57 L BP Systolic 104 BP Diastolic 57 Pulse Ox 97 05/15/23 16:25 05/15/23 16:26 05/15/23 16:26 Temperature Temperature Source Pulse Rate 68 78 Blood Pressure BP Systolic BP Diastolic Pulse Ox 99 05/15/23 16:32 05/15/23 16:32 05/15/23 16:31 Temperature Temperature Source Pulse Rate 71 Blood Pressure 96/54 L BP Systolic 96 BP Diastolic 54 Pulse Ox 100 05/15/23 16:35 05/15/23 16:35 05/15/23 16:36 Temperature Temperature Source Pulse Rate 80 75 Blood Pressure 107/64 BP Systolic 107 BP Diastolic 64 Pulse Ox 05/15/23 16:36 05/15/23 16:39 05/15/23 16:39 Temperature Temperature Source Pulse Rate 81 Blood Pressure 103/58 L BP Systolic 103 BP Diastolic 58 Pulse Ox 100 05/15/23 16:41 05/15/23 16:41 05/15/23 16:45 Temperature Temperature Source Pulse Rate 79 Blood Pressure 101/57 L BP Systolic 101 BP Diastolic 57 Pulse Ox 100 05/15/23 16:45 05/15/23 16:46 05/15/23 16:46 Temperature Temperature Source Pulse Rate 77 82 Blood Pressure BP Systolic BP Diastolic Pulse Ox 100 05/15/23 16:52 05/15/23 16:52 05/15/23 16:51 Temperature Temperature Source Pulse Rate 70 Blood Pressure 106/56 L BP Systolic 106 BP Diastolic 56 Pulse Ox 98 05/15/23 16:55 05/15/23 16:55 05/15/23 16:56 Temperature Temperature Source Pulse Rate 68 66 Blood Pressure 108/58 L BP Systolic 108 BP Diastolic 58 Pulse Ox 05/15/23 16:56 05/15/23 17:00 05/15/23 17:00 Temperature Temperature Source Pulse Rate 69 Blood Pressure 108/59 L BP Systolic 108 BP Diastolic 59 Pulse Ox 99 05/15/23 17:01 05/15/23 17:01 05/15/23 17:03 Temperature Temperature Source Pulse Rate 75 Blood Pressure 116/60 BP Systolic 116 BP Diastolic 60 Pulse Ox 99 05/15/23 17:03 05/15/23 17:05 05/15/23 17:05 Temperature Temperature Source Pulse Rate 80 73 Blood Pressure 110/61 BP Systolic 110 BP Diastolic 61 Pulse Ox 05/15/23 17:06 05/15/23 17:06 05/15/23 17:11 Temperature Temperature Source Pulse Rate 73 Blood Pressure 109/62 BP Systolic 109 BP Diastolic 62 Pulse Ox 99 05/15/23 17:11 05/15/23 17:11 05/15/23 17:16 Temperature Temperature Source Pulse Rate 74 75 Blood Pressure BP Systolic BP Diastolic Pulse Ox 99 05/15/23 17:16 05/15/23 17:18 05/15/23 17:18 Temperature Temperature Source Pulse Rate 75 Blood Pressure 103/51 L BP Systolic 103 BP Diastolic 51 Pulse Ox 99 05/15/23 17:21 05/15/23 17:21 05/15/23 17:21 Temperature Temperature Source Pulse Rate 71 Blood Pressure 106/58 L BP Systolic 106 BP Diastolic 58 Pulse Ox 99 05/15/23 17:25 05/15/23 17:25 05/15/23 17:26 Temperature Temperature Source Pulse Rate 89 Blood Pressure 125/82 H 125/89 H BP Systolic 125 125 BP Diastolic 82 89 Pulse Ox 05/15/23 17:26 05/15/23 17:30 05/15/23 17:30 Temperature Temperature Source Pulse Rate 95 88 Blood Pressure 128/71 H BP Systolic 128 BP Diastolic 71 Pulse Ox 05/15/23 17:34 05/15/23 17:34 05/15/23 17:35 Temperature Temperature Source Pulse Rate 77 Blood Pressure 127/80 H 112/76 BP Systolic 127 112 BP Diastolic 80 76 Pulse Ox 05/15/23 17:35 Temperature Temperature Source Pulse Rate 76 Blood Pressure BP Systolic BP Diastolic Pulse Ox Weight Weight: 152 lb 9.6 oz Body Mass Index (BMI) 24.6 Physical Exam Const alert, oriented x3, no apparent distress and healthy appearing General Appearance: cooperative; Negative for anxious HEENT normocephalic Face and Sinus: normal facial exam Eyes EOMs intact bilaterally and no scleral icterus General Eye: normal appearance of both eyes Neck full ROM and supple Lymph Lymphatic: no lymphadenopathy noted Chest Chest: abnormal inspection of the chest Resp normal respiratory effort Effort and Inspection: able to speak in complete sentences Cardio regular rate GI soft to palpation and non-tender Inspection: gravid Palpation: soft; Negative for tender external exam normal Back/Spine no CVA tenderness Extremity normal to inspection, full ROM and no clubbing, cyanosis or edema General Extremity: Negative for calf tenderness or edema Skin Lesions: no lesions Rashes: no rashes Psych mental status grossly normal Labs Labs Labs: Blood Type O NEGATIVE Antibody Screen POSITIVE Hct 38.9 % (37-47) Hgb 14.0 g/dL (12.0-15.0) Obstetrics US Syphilis Total Ab Non-reactive Rubella IgG Antibody Reactive (Nonreactive) Hep Bs Antigen Non-Reactive (Nonreactive) Chlamydia DNA (KARYNA) Negative (Negative) Neisseria gonorrhoeae DNA (KARYNA) Negative (Negative) HIV 1&2 Antibody Non-Reactive (Nonreactive) Glucose 1 Hr 50 gm 114 mg/dL (70-140) Rhogam given: No Miscellaneous Test Assessment & Plan (1) Baseline heart rate range 100 to 120 beats per minute: COMMENT: significant change from previous baseline. to for evaluation. (2) Hx of human papillomavirus infection: (3) Seasonal allergies: COMMENT: MARCH (4) Supervision of high risk , antepartum: COMMENT: PRR , SIN [id number]/, PC Dejan Guero normal female panorama report (5) : QUALIFIERS: Weeks of gestation: 40 weeks Qualified Code(s): Z3A.40 - 40 weeks gestation of COMMENT: Neg GBS anatomy nl, NIPT low risk, discussed carrier testing (6) Rubella non-immune status, antepartum: COMMENT: equiv. plan avoidance and MMR to be given PP (7) Rh negative status during : QUALIFIERS: Qualified Code(s): Z67.91 - Unspecified blood type, Rh negative COMMENT: Rhogam at 28 weeks and prn/given 09/17; 02/27 (8) Mitral valve prolapse: PLAN: Plan Patient presents IOL, plan management for with pitocin/AROM. Pain management: plans epidural. GBS negative. Management of any complications: none I have reviewed the [facility] and made any clinically relevant updates.
--- NOTE | 2023-05-15 18:42 | OP.PCM_ITS ---
Assessment & Plan (1) Baseline heart rate range 100 to 120 beats per minute: COMMENT: significant change from previous baseline. to for evaluation. (2) Supervision of high risk , antepartum: COMMENT: PRR , SIN , PC Dejan Guero normal female panorama report (3) : QUALIFIERS: Weeks of gestation: 40 weeks Qualified Code(s): Z3A.40 - 40 weeks gestation of COMMENT: Neg GBS anatomy nl, NIPT low risk, discussed carrier testing (4) Rubella non-immune status, antepartum: COMMENT: equiv. plan avoidance and MMR to be given PP (5) Rh negative status during : QUALIFIERS: Qualified Code(s): Z67.91 - Unspecified blood type, Rh negative COMMENT: Rhogam at 28 weeks and prn/given 09/17; 02/27 (6) Mitral valve prolapse: Maternal Data Information SIN Calculator Estimated Delivery Date Method Current WG Current Estimate 05/15/23 LMP (Certain) 40w 0d Other Estimates 05/11/23 Ultrasound #1 40w 4d Final SIN: 05/15/23 Gestational age: 40 Vaginal Delivery Maternal Presentation Maternal Presentation: Medically Indicated Induction Type of Induction: Pitocin and Amniotomy Medical Reason for Induction: - ( decels ) Operative Information Date of Procedure: 05/15/23 Pre-Operative Diagnosis: decelerations in office, 40 weeks Post-Operative Diagnosis: decelerations in office, 40 weeks Type of Anesthesia: Epidural Anesthesiologist: Galen Mendoza Estimated Blood Loss: 50cc Findings Description of Procedure: Patient began pushing and delivered the head in the SYMONE presentation. The head was delivered atraumatically and a loose nuchal cord ?1 was identified and easily reduced over the infant's head. The anterior and posterior shoulders delivered without complication followed by the rest of the infant and the was placed on the maternal abdomen. Delayed cord clamping was employed for approximately 60 seconds. Cord was clamped and cut and gentle traction was applied to the cord and the placenta delivered spontaneously immediately following it was noted to be intact with three-vessel cord. The perineum and vagina were inspected and noted to have a 2nd degree laceration. EBL was 50cc. Patient and tolerated delivery well. Presentation: Vertex Amniotic Fluid Description: Clear Placenta Disposition: [facility] Cord Vessel Description: 3 Vessels Cord Entanglement: Around neck x 1, loose A Gender: Female (1 minute): 8 (5 minute): 9 Delayed Cord Clamping: Yes Post Vaginal Delivery Medications Given After Delivery: IV Pitocin Episiotomy Description: None Laceration: 2nd degree Complication Complications: None Multi Select Codes Urinary/Genital Urinary/Genital CPT Codes: 88386 Vaginal Delivery [facility]
--- NOTE | 2023-05-15 18:54 | DCINST_ITS ---
Discharge Instructions Diet Discharge Diet: No restrictions Activity Discharge Activity: Return to Normal Activity, May Not Drive (while taking narcotic pain medications.) and May Shower May resume sexual activity in: 4-6 weeks Dressing / Incision Call your doctor if your incision/area has: Continuous Slow Oozing, Sudden Increased Bleeding, Increased Pain/ Swelling, Increased Redness and Foul Smelling Discharge Follow Up Care Please Follow Up With: Vanessa Mercado, DO When: Call [phone] to make an appointment with your doctor in 6 weeks. If you had elevated blood pressure or 4th degree laceration, you will need to be seen in 2 weeks. Test Results: Test results from this visit will be discussed in further detail at your follow- up appointment, if applicable. Discharge Plan Admission Admit Date/Time: 05/15/23 10:55 Attending Provider: Vanessa Mercado Primary Care Provider: Care Physician,Estrella Primary Discharge Orders/Prescriptions Prescriptions: No Action PNV-Select 27-1 mg tablet 1 tab PO DAILY Rx Instructions: orally; fluticasone propionate 50 mcg/actuation spray,suspension 1 spray intranasal DAILY PRN (Reason: allergy symptoms) Rx Instructions: administer into each nostril Referrals / Follow Up: Care Physician,No Primary [Primary Care Provider] -
[2023-05-15] MEDS: Oxytocin 15 Units/NS 250ml 15 UNITS/250 ML IV.SOLN 83 UNITS IV (19:22)
[2023-05-15] MEDS: Acetaminophen 500 MG Tablet PO (22:47)
[2023-05-16] VITALS (10 sets, daily range): BP systolic 101–129; BP diastolic 58–80; PULSE 63–89; RESP 16; TEMP 36.2–36.9; O2SAT 95–97
[2023-05-16] MEDS: Acetaminophen 500 MG Tablet PO ×2 (06:46→12:59)
[2023-05-16] MEDS: Naproxen 500 MG Tablet PO ×2 (07:44→18:50)
[2023-05-16] MEDS: oxyCODONE 5 MG Tablet PO (10:54)
--- NOTE | 2023-05-16 15:24 | CASEMGMT ---
Social Work Assessment Labor and Delivery Unit Patient [id number] [place] [id number]: Phone number: [phone] Date of Referral: 05/15/23 Time of Referral:? 1302 Referred By: Dr. Vanessa Mercado Date of Intervention: ?05/16/23? Time of Intervention:? 1420 Reason for Referral:? ELZA's dad is an addict History obtained from: medical records and mother of baby (MOB- Carol)??and father of baby (FOB- Guero)? Household composition: Currently residing at home is parents, and older brother, Dejan (: 12/2020) Patient's parent/guardian status:?Parents report they have been together for 8 years, for almost 5. Parents have two children together. MOB denies abuse/ domestic violence. ? Medical History: This is second and delivery for ELZA. ELZA had routine care during with Mongo. MOB had low blood pressure during delivery, FOB stated it was very scary. Both parents express thankfulness that baby is here and both mom and baby are doing well. Baby was bornat 40 weeks weighing 3680 grams and her apgars were 8 and 9. Baby's name is Skyler (middle name undecided at this time). MOB is breast feeding. Tariff Compiling Clerk is Dr. Harris. Educational Status: MOB has a masters degree in teaching. FOLitzy has a bachelors degree in athletic training. ? Financial Status: Both parents are successfully employed outside of the home. 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 FOLitzy works at [employer]. ELZA gets all summer off, FOLitzy gets 10 days of paid leave. Infant Supplies:?Parents report they have obtained all necessary baby items including car seat, safe sleep space, clothes, diapers and wipes. ELZA has a breast pump. Childcare/Caregiver(s):? MOB states that when both parents are working they have child care aide arrangements settled. Baby and sibling will be watched one day a week by maternal grandma, one day by paternal grandma and then three days by a respiratory support technician. Transportation:?? Parents report they have reliable and dependable transportation. No barriers at this time. Programs/Agencies Involved: NO programs or agencies providing resources at this time. ??? Children Services/Legal Issues:??? No former involvement and no concerns warranting referral at this time. Behavioral Health Issues: ?? Mental Health History:??MOB and FOLitzy deny mental health history. MOB states that some of her family members have mental health diagnoses but she is not sure what they are at this time. MOB denies BiPolar. MOB states that she may have experienced the baby blues following the of her first baby. MOB states when her first baby was born she was in grad school and was very overwhelmed. MOB states that she feels good now and in a much better mental space than where she was following the of her first. Sw asked ELZA if she has ever been in counseling and if that is something she would be receptive to. Sw offered to provide list of [facility] resources. ELZA declined and stated that she feels really good and is able to talk to her PCP/OBGYN if concerns arise. ? Substance Use History:?MOB denies history and current substance use. Family History:??ELZA states that her father was adopted when he was a couple of weeks old. His mom dropped him off at the [facility] [place] [facility] and never returned. The respiratory support technician was a licensed leather goods maker and ended up adopting him. MOB states that her father has always had a substance use problem. MOB states that it initially started off with pills and now he uses heroin. FOLitzy states that the last time they saw maternal grandpa he was on speed as he had not slept in over two weeks. ELZA states that she does not see him that often and she is closer with her mom who is a big support person for her and their family. Drug Screens: ?MOB urine screens were negative during and at delivery. Family/Social Stressors:? Parents deny any stressors at this time. Support Systems: Parents report they have a lot of family and friends who are supportive. Maternal grandma and paternal grandparents are extremely supportive and help out a lot with childcare and providing meals. Depression/Shaken Baby/Safe Sleeping:Sw provided education on signs and symptoms of baby blues and post depression. Sw encourarged parents to have a discussion on how FOB can be supportive and help MOB if she were to experience either of these. FOB and MOB expressed understanding. Rafael explained to parents to never shake a baby and ABCs of safe sleep. Both parents expressed understanding. Sw encouraged parents to talk to their older child about safe sleep. ASSESSMENT:? Parents were talkative and polite during conversation. Parents open and receptive to sw involvement and support. Parents have strong supports in place and are ready with all necessary supplies for baby at home. PLAN:? MOB to be discharged with baby today. ?No other services requested or indicated. Benton Robertson, SPRAY UNIT FEEDER, ICT DEVELOPMENT MANAGER
== END 2023-05-16 19:53 | disposition home or self-care (01) | DRG 805 ==
PROVIDERS: Admitting Provider Obstetrics & Gynecology; Visit Provider Obstetrics & Gynecology
DX: O76 Abnormality in fetal heart rate and rhythm complicating labor and delivery (principal); Z37.0 Single live birth; O99.42 Diseases of the circulatory system complicating childbirth; I34.1 Nonrheumatic mitral (valve) prolapse; O70.1 Second degree perineal laceration during delivery; O69.81X0 Labor and delivery complicated by cord around neck, without compression, not applicable or unspecified; O26.893 Other specified pregnancy related conditions, third trimester; Z67.41 Type O blood, Rh negative; Z3A.40 40 weeks gestation of pregnancy; Z86.19 Personal history of other infectious and parasitic diseases
CPT/HCPCS: 59025; 59050; 85025; 85461; 86780; 86850; 86870; 86900; 86901; 99221; J7120; G0378; J2790

== ENCOUNTER 2023-06-09 20:40 | Emergency (ER) | payer OTHER, SELFPAY ==
[2023-06-09 20:41] VITALS: BP 131/91; PULSE 86; RESP 18; TEMP 36.6; O2SAT 99; BMI 21.3
--- NOTE | 2023-06-09 21:00 | ED.VIS.LOWEX ---
HPI History of Present Illness HPI Narrative: Atraumatic right lower leg lump on the anterior proximal tran. Status post vaginal delivery 3 and half weeks ago. No history of DVT or PE. No chest pain or shortness of breath. Spoke to her primary care provider over the phone Robi, to be evaluated. She denies any other complaints. No easy bleeding or bruising. Chief Complaint: Lower Extremity Injury Informant: patient and spouse/S.O. Occured/Mechanism Mechanism/Context: No injury and No blunt trauma Onset/Context/Timing Onset: Today Context: Gradual Onset Timing: Continuous Quality of Pain: Dull Current Severity: Mild Maximum Severity: Mild Associated Symptoms Associated Symptoms: Negative for Parasthesia or Weakness Narrative Narrative: 33-year-old female 3 and half weeks status post vaginal delivery. No significant problems during the . She was only hospitalized about 24 hours and discharge. No prior DVT or PE. No calf pain or swelling. Noticed today a lump on her right anterior tran called her primary care provider wanted to have it evaluated. Prior similar symptoms: No Recent Illness/Hospitalization: No PFSH PFSH Medical History Abnormal Pap smear of cervix Baseline heart rate range 100 to 120 beats per minute Hx of recurrent urinary tract infection Mitral valve prolapse Supervision of high risk , antepartum Home Medications vit,calcium no.40-iron fum 27 mg iron-folate no.1 1 mg tablet (PNV-Select) 1 tab PO DAILY 09/21/22 [History Last Taken 05/14/23 11:14] fluticasone propionate 50 mcg/actuation nasal spray,suspension 1 spray intranasal DAILY PRN allergy symptoms 04/16/23 [History Last Taken Unknown] Allergy/AdvReac Type Severity Reaction Status Date / Time Sulfa (Sulfonamide Allergy Mild blisters Verified 05/24/23 10:32 Antibiotics) Family History Grandfather Heart disease Grandmother Breast cancer Surgical History History of hernia surgery History of tonsillectomy Status post colposcopy [place] teeth removed Social History adopted: No household members: spouse and children housing: house number of children: 1 current occupational status: employed 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 current occupational exposures/hazards: No pets and animals: Yes (not managing litterbox) pets and animals: cat(s) and dog(s) history of recent travel: No sexually active: Yes Smoking Status: Never smoker alcohol intake: former details: prior to substance use type: does not use well-balanced diet: daily or most days caffeine: Yes Type: coffee Number of servings: 1 during the past year weight has: remained stable what type of physical activity do you participate in: none alayna/jehovah's witness: None seatbelt use: always do you feel safe at home: Yes additional social history: - [employer]- [employer] Patient works at [employer] ROS ROS ED ROS Narrative Denies. No recent illness. No chest pain or shortness of breath. Review of Systems ROS Unobtainable: Denies due to encephalopathy Constitutional Constitutional ED: Denies chills or fever(s) Eyes Eyes: Denies blurry vision ENT ENT ED: Denies ear pain Cardiovascular Cardiovascular: Denies chest pain Respiratory/Chest Respiratory/Chest: Denies cough Gastrointestinal Gastrointestinal: Denies abdominal pain Genitourinary Genitourinary ED: Denies dysuria Musculoskeletal Musculoskeletal: Denies arthralgias Integumentary Denies abscess Neurologic Neurologic: Denies headache(s) Psychiatric Psychiatric: Denies anxiety Endocrine Endocrinology: Denies polydipsia Hematologic/Lymphatic Hematologic/Lymphatic: Denies easy bleeding Allergic/Immunologic Allergic/Immunologic ED: Denies mouth swelling EXAM Physical Exam Narrative Exam Narrative: Appearing 33-year-old female. Vital signs stable afebrile. Pulse ox 9 9% on room air no signs hypoxia. Sitting upright in bed. at bedside. Holding a baby in her arms. HEENT exam unremarkable. Lungs clear. Heart regular rhythm. Abdomen soft nontender. Moving all 4 extremities. Right anterior tran just below her knee there is about a dime sized area that looks like a small hematoma. There is no redness or warmth. It is only minimally tender. There is no bony deformity. There is absolutely no calf tenderness. No calf swelling. No cords. Right foot is neurovascular intact. The right lower leg is not swollen at all. There is no tenderness or swelling in the thigh or hamstring. Otherwise exam unremarkable. Const Vital Signs: 06/09/23 20:41 Temperature 97.8 F Temperature Source Temporal Pulse Rate 86 Respiratory Rate 18 Blood Pressure 131/91 H Blood Pressure Mean 104 Pulse Ox 99 Positive well nourished and well developed; Negative for obese, cachectic, contractures or unkempt General Appearance ED: well developed and NAD; Negative for unkempt, cachectic or contractures Nutritional Appearance: Negative for cachectic or obese HEENT Reports moist mucous membranes normocephalic and atraumatic; Negative for trauma or tenderness Eyes PERRL General Eye ED: Negative for other Neck full ROM and supple Thyroid: Negative for tender Lymph Lymphatic: Negative for other Chest Wall inspection of chest normal and palpation of chest normal Chest: Negative for other Resp normal respiratory effort, no retractions and clear to auscultation bilaterally Effort and Inspection: Negative for pain with movement Auscultation: Negative for rales, rhonchi or wheezes Cardio regular rate, regular rhythm, S1 normal heart sound, S2 normal heart sound and no murmurs Rate: Negative for tachycardic Rhythm: Negative for abnormal rhythm GI non-distended and no masses Inspection: Negative for abdominal distention Auscultation: normoactive bowel sounds Palpation: Negative for tender or guarding Back/Spine no CVA tenderness Extremity normal to inspection and full ROM Extremity Narrative: Small hematoma right anterior proximal tran. No calf pain or swelling. Right foot neurovascular intact. No hamstring or thigh pain or swelling. General Extremety ED: Negative for cyanosis or edema General Extremity: Negative for cyanosis or edema Neuro oriented x3, CN's II-XII intact bilaterally and moves all extremities Sensorium / Orientation: alert, oriented to person, oriented to place and oriented to time; Negative for orientation impaired, confused, lethargic or stuporous Motor Exam: strength 5/5 throughout; Negative for general weakness or strength abnormal Psych mental status grossly normal Appearance: Negative for unkempt Speech: No other Mood & Affect: Negative for anxious Skin no wounds Lesions: no lesions Rashes: no rashes Trauma: Negative for abrasion or laceration MDM MDM MDM Narrative Medical decision making narrative: 33-year-old female 3 and half weeks . Has a small hematoma right proximal tran. This does not need noninvasive study. Anterior. Appears to be hematoma. Ice to the area. Motrin and Tylenol for pain. Follow-up if not improving or if she develops calf pain or swelling in her lower leg. She does not any labs or imaging at this time. The rest of her exam is normal. History & Record Review Discussion w/independent historian: Patient and Family Discharge Plan Triage Chief Complaint: Lower Extremity Injury ED Provider: Antolin Mai Dx/Rx/DC Orders Clinical Impression: Hematoma Instructions: ED Contusion, Lower Extremity Prescriptions: No Action PNV-Select 27-1 mg tablet 1 tab PO DAILY Rx Instructions: orally; fluticasone propionate 50 mcg/actuation spray,suspension 1 spray intranasal DAILY PRN (Reason: allergy symptoms) Rx Instructions: administer into each nostril Primary Care Provider: Dilcia Ramirez NP Referrals: Dilcia Ramirez PEDIATRIC AUDIOLOGIST, PEDIATRIC AUDIOLOGIST-C [Primary Care Provider] - 1 Week if not improving Activity Restrictions/Additional Instructions: This appears to be a hematoma or bruise of your right lower leg. Ice. Motrin and Tylenol for pain. This should progressively improve. If you get calf pain or significant swelling in your lower leg then you would need an ultrasound of the leg. Clinically this is not a blood clot at this time.
== END 2023-06-09 21:24 | disposition home or self-care (01) ==
LOC: ED 21:05
PROVIDERS: Emergency Provider Emergency Medicine; PCP Nurse Practitioner Women's Health; Visit Provider Emergency Medicine
DX: O9A.23 Injury, poisoning and certain other consequences of external causes complicating the puerperium (principal); S80.11XA Contusion of right lower leg, initial encounter; X58.XXXA Exposure to other specified factors, initial encounter
CPT/HCPCS: 99282

== ENCOUNTER → 2025-02-25 | Outpatient (CLI) | payer OTHER, SELFPAY | END | disposition home or self-care (01) | LOC: LABSPEC 16:00 | PROVIDERS: PCP Nurse Practitioner Women's Health; Referring Provider Nurse Practitioner Women's Health; Visit Provider Nurse Practitioner Women's Health | DX: Z12.4 Encounter for screening for malignant neoplasm of cervix (principal) | CPT/HCPCS: 87624; 88175; G0145 ==